=== PATIENT | male | born 1970 | race Caucasian/White ===

== ENCOUNTER → 2020-08-31 09:04 | Outpatient (BNVA) | payer SELFPAY | PROVIDERS: Visit Provider Nurse Practitioner | DX: M10.9 Gout, unspecified (principal) | CPT/HCPCS: 84550 ==

== ENCOUNTER → 2020-10-08 13:51 | Outpatient (BNVA) | payer SELFPAY | PROVIDERS: Visit Provider Nurse Practitioner Family | DX: M25.561 Pain in right knee (principal); M25.461 Effusion, right knee; M10.9 Gout, unspecified | CPT/HCPCS: 73562 ==

== ENCOUNTER → 2020-10-22 16:08 | Outpatient (BNVA) | payer SELFPAY | PROVIDERS: PCP Nurse Practitioner Family; Visit Provider Nurse Practitioner Family | DX: M25.461 Effusion, right knee (principal); M25.561 Pain in right knee; M10.9 Gout, unspecified | CPT/HCPCS: 80053; 84550; 85025; 85651; 86140; 86431 ==

== ENCOUNTER 2020-10-23 13:02 | Outpatient (CLI) | payer SELFPAY ==
--- NOTE | 2020-10-23 13:08 | MR_ITS ---
WS: [id number] MRI RIGHT KNEE NONCONTRAST TECHNIQUE: Axial PD, coronal PD fat sat, coronal PD, sagittal PD, and sagittal PD fat-sat images obta ined. CLINICAL INFORMATION: M25.561 - Pain in right knee COMPARISON: None. FINDINGS: Distal quadriceps and patella tendons are intact. Small suprapatellar effusion with small amount of p roteinaceous debris. Anterior and posterior cruciate ligaments are intact. Hypertrophic patella. Soft tissue edema and synovial thickening about the knee. Edema in the popliteal fossa. T2 hyperintense well-circumscribed ovoid heterogeneous lesion below the joint line posterior to the p roximal tibia in the proximal muscle belly of the popliteus. This measures approximately 3.1 x 1.6 x 4.1 CM. This is incompletely included on the axial imaging. Chronic thinning of the medial and lateral meniscus. No acute appearing meniscal tears. Moderate chana dromalacia involving the medial and lateral joint compartments. Mild chondromalacia patella. Medial a nd lateral collateral ligaments appear intact. Small lobulated T2 hyperintense lesions in the dorsal soft tissues along the posterior femur measurin g up to 12 mm. Prepatellar and infrapatellar soft tissue edema. No significant erosive changes or bon e marrow edema. MR/MR knee RT wo con* [id number] IMPRESSION: 1. Anterior and posterior cruciate ligaments are intact. 2. Small joint effusion with heterogeneity likely due to proteinaceous debris. 3. Diffuse soft tissue edema with synovial thickening about the knee extending into the popliteal fossa. This is nonspecific but can be seen with infectious or inflammatory arthropathy including gout. 4. Ovoid heterogeneous lesion within the popliteus along the posterior tibia m easuring up to 4.1 cm described above. This may represent gouty tophi with hist ory or possibly hematoma. Infection with abscess should be excluded. 5. Additional small T2 hyperintense lobulated lesions in the dorsal knee soft tissues above the joint line are nonspecific and may represent small ganglion c ysts or gouty tophi. Infection with small abscesses should be excluded 6. No significant erosive changes bone marrow edema.
== END 2020-10-23 13:03 | disposition home or self-care (01) ==
LOC: RADWPI 13:05
PROVIDERS: PCP Nurse Practitioner Family; Visit Provider Nurse Practitioner Family
DX: M25.561 Pain in right knee (principal); R60.0 Localized edema; M25.461 Effusion, right knee
CPT/HCPCS: 73721

== ENCOUNTER → 2020-10-25 16:26 | Outpatient (BNVA) | payer SELFPAY | PROVIDERS: PCP Nurse Practitioner Family; Visit Provider Nurse Practitioner Family | DX: R76.8 Other specified abnormal immunological findings in serum (principal); M25.561 Pain in right knee; M25.461 Effusion, right knee | CPT/HCPCS: 85025 ==

== ENCOUNTER → 2020-12-17 08:50 | Outpatient (BNVA) | payer SELFPAY | PROVIDERS: PCP Nurse Practitioner Family; Visit Provider Internal Medicine Rheumatology | DX: M05.79 Rheumatoid arthritis with rheumatoid factor of multiple sites without organ or systems involvement (principal); Z79.899 Other long term (current) drug therapy; Z79.52 Long term (current) use of systemic steroids; Z11.59 Encounter for screening for other viral diseases; Z11.1 Encounter for screening for respiratory tuberculosis; M10.9 Gout, unspecified; M24.521 Contracture, right elbow; M24.522 Contracture, left elbow; M24.561 Contracture, right knee; F17.290 Nicotine dependence, other tobacco product, uncomplicated | CPT/HCPCS: 99204 ==

== ENCOUNTER 2020-12-17 10:11 | Outpatient (CLI) | payer SELFPAY ==
--- NOTE | 2020-12-17 10:26 | XRR_ITS ---
PROCEDURE INFORMATION: Exam: XR Left Hand Exam date and time: 12/17/2020 11:04 AM Age: 50 years old Clinical indication: Screening exam; Z79.899 - other residential (current) drug therapy TECHNIQUE: Imaging protocol: XR Left hand. Views: 3 or more views. COMPARISON: No relevant prior studies available. FINDINGS: Bones/joints: No fracture, dislocation or other acute bone or joint abnormalities are seen. There is mild diffuse narrowing of the interphalangeal joints. No destructive or erosive bony changes are present. Soft tissues: Normal. XR/XR hand LT min 3V* [id number] IMPRESSION: Mild narrowing of the interphalangeal joints. No other significant abnormalities are seen.
--- NOTE | 2020-12-17 10:26 | XRR_ITS ---
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 Views: 3 or more views. COMPARISON: No relevant prior studies available. FINDINGS: Bones/joints: No fracture, dislocation or other acute bone or joint abnormalities are seen. Moderate chronic degenerative disease is present in the 1st metatarsophalangeal joint with narrowing sclerosis and small osteophytes. There is chronic spurring on the calcaneus at the insertions of the Achilles tendon and plantar aponeurosis. No destructive or erosive changes are seen. Soft tissues: See Bones/joints finding. XR/XR foot RT min 3V* [id number] IMPRESSION: 1. Moderate degenerative disease in the 1st metatarsophalangeal joint. 2. No acute bony abnormality.
--- NOTE | 2020-12-17 10:26 | XRR_ITS ---
PROCEDURE INFORMATION: Exam: XR Left Foot Exam date and time: 12/17/2020 10:27 AM Age: 50 years old Clinical indication: Screening exam; Z79.899 - other penitentiary (current) drug therapy TECHNIQUE: Imaging protocol: XR Left foot. Views: 3 or more views. COMPARISON: No relevant prior studies available. FINDINGS: Bones/joints: No fracture, dislocation or other acute abnormalities are seen. Moderate chronic degenerative osteoarthritis is present in the 1st metatarsophalangeal joint with narrowing sclerosis and small osteophytes. There is chronic spurring on the calcaneus at the insertions of the Achilles tendon and plantar aponeurosis. There is deformity of the head of the proximal phalanx of the 4th toe which is probably from old injury. Soft tissues: See Bones/joints finding. XR/XR foot LT min 3V* [id number] IMPRESSION: 1. Moderate degenerative disease in the 1st metatarsophalangeal joint. 2. No acute abnormality.
--- NOTE | 2020-12-17 10:26 | XRR_ITS ---
PROCEDURE INFORMATION: Exam: XR Right Elbow Exam date and time: 12/17/2020 11:06 AM Age: 50 years old Clinical indication: Screening exam; Z79.899 - other intermediate (current) drug therapy TECHNIQUE: Imaging protocol: XR Right elbow. Views: 1 or 2 views. COMPARISON: No relevant prior studies available. FINDINGS: Bones/joints: No fracture or other acute abnormalities are seen. There is a small olecranon spur. There is tiny osteophyte formation on the proximal radius and ulna. No destructive or erosive changes are present. Soft tissues: Normal. XR/XR elbow RT 2V [id number] IMPRESSION: Minimal chronic degenerative osteoarthritis. No acute abnormality.
--- NOTE | 2020-12-17 10:26 | XRR_ITS ---
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 Views: 3 or more views. COMPARISON: No relevant prior studies available. FINDINGS: Bones/joints: No fracture, dislocation or other acute bone or joint abnormalities are seen. There is mild diffuse narrowing of the interphalangeal joints. No destructive or erosive changes are present. Soft tissues: Normal. XR/XR hand RT min 3V* [id number] IMPRESSION: Mild narrowing of the interphalangeal joints. No other significant abnormalities.
--- NOTE | 2020-12-17 10:26 | XRR_ITS ---
PROCEDURE INFORMATION: Exam: XR Left Elbow Exam date and time: 12/17/2020 11:06 AM Age: 50 years old Clinical indication: Screening exam; Z79.899 - other intermediate designer (current) drug therapy TECHNIQUE: Imaging protocol: XR Left elbow. Views: 1 or 2 views. COMPARISON: No relevant prior studies available. FINDINGS: Bones/joints: No fracture, dislocation or other acute bone or joint abnormalities are seen. Minimal degenerative changes are present with sclerosis and tiny osteophytes. No destructive or erosive changes are seen. Soft tissues: Normal. XR/XR elbow LT 2V [id number] IMPRESSION: Minimal degenerative disease. No acute abnormality.
[2020-12-17 12:25] LABS: 25 Hydroxy Vitamin D 33 ng/mL (30-100)
[2020-12-17 12:56] LABS: Hepatitis B Core AB, Total Non-Reactive (Nonreactive); Hepatitis B Surface Antigen Non-Reactive (Nonreactive); Hepatitis C Virus Antibody Non-Reactive (Nonreactive)
[2020-12-18 15:33] LABS: Cyclic Citrullinated Peptide >250 UNITS
[2020-12-19 15:12] LABS: Quantiferon Mitogen 7.61 IU/mL; Quantiferon Nil 0.01 IU/mL; Quantiferon TB Gold NEGATIVE (NEGATIVE)
== END 2020-12-17 10:12 | disposition home or self-care (01) ==
PROVIDERS: PCP Nurse Practitioner Family; Visit Provider Internal Medicine Rheumatology
DX: M06.9 Rheumatoid arthritis, unspecified (principal); Z79.899 Other long term (current) drug therapy; Z11.59 Encounter for screening for other viral diseases; Z11.1 Encounter for screening for respiratory tuberculosis
CPT/HCPCS: 36415; 73070; 73130; 73630; 82306; 84550; 86480; 86704; 86803; 87340

== ENCOUNTER 2022-11-01 02:14 | Emergency (ER) | payer SELFPAY ==
[2022-11-01 02:15] VITALS: BP 148/89; PULSE 87; RESP 18; TEMP 36.9; O2SAT 94; BMI 31.4
--- NOTE | 2022-11-01 02:51 | XRR_ITS ---
PROCEDURE INFORMATION: Exam: XR Chest Exam date and time: 11/01/2022 3:03 AM Age: 52 years old Clinical indication: Pain; Chest pressure; Additional info: Cp TECHNIQUE: Imaging protocol: Radiologic exam of the chest. Views: 1 view. COMPARISON: No relevant prior studies available. FINDINGS: Lungs: Unremarkable. No consolidation. Pleural spaces: Unremarkable. No pleural effusion. No pneumothorax. Heart/Mediastinum: Unremarkable. No cardiomegaly. Bones/joints: Unremarkable. XR/XR chest 1V portable [id number] IMPRESSION: No acute findings.
--- NOTE | 2022-11-01 03:37 | W.ED.BACK ---
HPI - Back Pain/Injury General: Chief Complaint: Back Pain/Injury Stated Complaint: INSECT BITE Time Seen by Provider: 11/01/22 02:17 Source: patient History of Present Illness: 52-year-old male with chest pain. Chest pain is left-sided. He noticed a bug bite in the area of origin on his left upper back. The pains seemed to radiate around his chest wall yesterday. This morning, the pain was more through his chest. He became diaphoretic. He got short of breath. He thought he was having a heart attack so he called an ambulance. Pain is not reproducible. He has been coughing some. No fever. MD elicited complaint: back pain and other Pertinent past history: other Onset (ago): hour(s) Timing: intermittent Severity: moderate Similar Symptoms Previously: No Quality: sharp Location: left upper back Radiation: chest Exacerbating factors: none Relieving factors: none Associated symptoms: Reports nausea and other; Deny abdominal pain, chills, dysuria, fatigue, fever(s), tingling/numbness/burning, vomiting or weakness Review of Systems Const: Denies: fever(s), chills or fatigue Eyes: Denies: change in vision ENMT: Denies: throat pain Card: Reports: chest pain Resp: Reports: dyspnea and non-productive cough; Denies: productive cough GI: Reports: nausea; Denies: abdominal pain or vomiting : Denies: dysuria Skin/Breast: Reports: rash [facility] PFSH: Medical History Anxiety Chronic steroid use Gout attack Gout, arthritis High risk medication use Immunization counseling Seropositive rheumatoid arthritis of multiple sites Surgical History History of appendectomy Family History Father Cancer Prostate Diabetes Other Dementia Stroke Denies family history of Hypertension Social History Smoking and tobacco status: current every day smoker e-cigarettes E-Cigarette Details: vaporizer device Second hand smoke exposure: No Smoking risk assessment/counseling performed?: No Alcohol intake: former Desire information about alcohol rehabilitation?: No Counseling given: No Desire information about substance/drug rehabilitation?: No Counseling given: No Adopted: No Caregiver/support person: No Lives independently: Yes Household members: none Housing: House Marital status: Single Number of children: 1 service: No Current occupational status: employed Current occupation: Self Employed Pets and animals: No Current gender identity: Male Physical Exam Const: COMMON NORMALS: no acute distress GENERAL APPEARANCE: cooperative; not ill appearing and not frail appearing HENMT: COMMON NORMALS: normocephalic, atraumatic and Normal external nose present HEAD & SCALP: normocephalic and atraumatic FACE & SINUS: normal facial exam and face symmetric NOSE: Normal external nose present Eye: COMMON NORMALS: Equal, round and reactive pupils present and EOMs intact bilaterally PUPIL: Yes Equal, round and reactive pupils present Neck/C-Spine: GENERAL: Yes trachea midline Chest: CHEST: Yes Symmetrical chest wall rise and No tenderness Resp: COMMON NORMALS: normal respiratory effort, No retractions, No use of accessory muscles and clear to auscultation bilaterally AUSCULTATION: clear to auscultation bilaterally Cardio: COMMON NORMALS: regular rate and regular rhythm RATE: regular rate RHYTHM: regular rhythm GI: COMMON NORMALS: Normal to inspection, nondistended, normoactive bowel sounds present Extremity: COMMON NORMALS: no pedal edema Neuro: GEOVANI COMA SCALE: document GCS findings [place] coma scale eye opening: Spontaneous Geovani coma scale verbal response: Orientated [place] coma scale motor response: Obey commands Geovani coma scale total score: 15 SENSORY EXAM: Yes extremities (intact) Psych: COMMON NORMALS: speech normal SPEECH: Yes normal speech Skin: NARRATIVE SKIN EXAM: Multiple bites to the back. 1 over the area of pain origin. It is nontender. No erythema migrans rash. Course Vital Signs: Vital signs: Vital Signs Temperature 98.4 F 11/01/22 05:48 Pulse Rate 88 11/01/22 05:48 Respiratory Rate 18 11/01/22 05:48 Blood Pressure 140/76 11/01/22 05:48 Pulse Oximetry 93 11/01/22 05:48 MDM - Back Pain/Injury Medical Decision Making It isEKG shows a sinus rhythm with normal axis and intervals. 88. No acute ST changes. Troponin is 6. CBC is normal. D-dimer is nondetectable. Chest x-ray is negative. He will be allowed home. We will treat for costochondritis, chest wall inflammation. Labs 11/01/22 04:20 11/01/22 04:20 Radiology Impressions Chest X-Ray 11/01/22 02:51 IMPRESSION: No acute findings. Laboratory Results WBC 9.9 10^3/uL (4.0-10.0) 11/01/22 04:20 RBC 4.89 10^6/uL (4.1-5.3) 11/01/22 04:20 Hgb 15.2 g/dL (11.7-16.6) 11/01/22 04:20 Hct 45.3 % (42.0-52.0) 11/01/22 04:20 MCV 92.6 fl (80-94) 11/01/22 04:20 MCH 31.1 pg (28.0-34.0) 11/01/22 04:20 MCHC 33.6 g/dL (30.0-36.0) 11/01/22 04:20 RDW 13.2 % (12.1-15.1) 11/01/22 04:20 Plt Count 311 10^3/cmm (130-400) 11/01/22 04:20 MPV 9.0 fL (7.4-10.4) 11/01/22 04:20 Neut % (Auto) 65.8 % 11/01/22 04:20 Lymph % (Auto) 25.2 % 11/01/22 04:20 [place] % (Auto) 5.6 % 11/01/22 04:20 Eos % (Auto) 2.2 % 11/01/22 04:20 Baso % (Auto) 0.4 % 11/01/22 04:20 Neut # (Auto) 6.50 10^3/uL (1.8-7.7) 11/01/22 04:20 Lymph # (Auto) 2.5 10^3/uL (0.8-4.8) 11/01/22 04:20 [place] # (Auto) 0.6 10^3/uL (0.2-0.9) 11/01/22 04:20 Eos # (Auto) 0.2 10^3/uL (0.0-0.8) 11/01/22 04:20 Baso # (Auto) 0.0 10^3/uL (0.0-0.1) 11/01/22 04:20 Nucleated RBC % (auto) 0 % 11/01/22 04:20 Nucleated RBCs # 0.0 /100WBC 11/01/22 04:20 D-Dimer <= 0.27 ug/mIFEU (0-0.59) 11/01/22 04:20 Sodium 128 mmol/L (136-145) L 11/01/22 04:20 Potassium 3.9 mmol/L (3.5-5.1) 11/01/22 04:20 Chloride 97 mmol/L (98-107) L 11/01/22 04:20 Carbon Dioxide 23 mmol/L (22-29) 11/01/22 04:20 Anion Gap 11.9 (5-19) 11/01/22 04:20 BUN 15 mg/dL (6-20) 11/01/22 04:20 Creatinine 0.7 mg/dL (0.7-1.2) 11/01/22 04:20 GFR Calculation 118.9 mL/min (90-130) 11/01/22 04:20 Glucose 112 mg/dL (65-115) 11/01/22 04:20 Calculated Osmolality 268 mOsm/kg (285-295) L 11/01/22 04:20 Calcium 8.9 mg/dL (8.5-10.5) 11/01/22 04:20 Total Bilirubin 0.3 mg/dL (0.15-1.2) 11/01/22 04:20 AST 12 U/L (0-40) 11/01/22 04:20 ALT 23 U/L (0-41) 11/01/22 04:20 Alkaline Phosphatase 88 U/L (40-130) 11/01/22 04:20 Creatine Kinase 102 U/L (39-308) 11/01/22 04:20 Troponin T Baseline 6 ng/L (0-15) 11/01/22 04:20 NT-Pro-B Natriuret Pep 36 pg/mL (0-125) 11/01/22 04:20 Total Protein 6.6 g/dL (6.6-8.7) 11/01/22 04:20 Albumin 4.4 g/dL (3.5-5.2) 11/01/22 04:20 Globulin 2.2 g/dL (1.3-4.6) 11/01/22 04:20 Discharge Plan Discharge Patient Disposition: Home Clinical Impression: Acute costochondritis, Tick bite Condition: Stable Prescriptions: New ondansetron 4 mg film 4 mg PO DAILY PRN (Reason: nausea and vomiting) Qty: 10 0RF No Action naproxen sodium [Aleve] 220 mg tablet 440 mg PO BID PRN CBD tincture buccal allopurinol 300 mg tablet 300 mg PO DAILY Qty: 30 3RF colchicine 0.6 mg tablet 0.6 mg PO BID PRN (Reason: gout pain) Qty: 60 3RF prednisone 10 mg tablet See Rx Instructions PO DAILY Qty: 120 1RF Rx Instructions: take 3 tabs daily x 10 days, then 2 tabs QD x10 days then 1.5 QD x 10 days. then stay on 1 daily PO daily; pantoprazole 40 mg tablet,delayed release (DR/EC) 40 mg PO DAILY Qty: 30 3RF methotrexate sodium 2.5 mg tablet 15 mg PO .Q7days Qty: 30 3RF Rx Instructions: 6 tabs every thursday folic acid 1 mg tablet 1 mg PO DAILY Qty: 90 3RF prednisone 10 mg tablets,dose pack See Rx Instructions PO PER PKG DIR Qty: 21 0RF Rx Instructions: PO PER PKG DIR May use loose pills if needed. Discharge Orders: Discharge ED (Routine); Ordered 11/01/22 Ordered By: Emeka Mari Referrals: Estelle Mitchell FNP-C [Primary Care Provider] - 1-3 days Patient Instructions: Costochondritis (ED) Activity Restrictions/Additional Instructions: Return for fever greater than 100, return for worsening pain despite treatment, worsening shortness of breath, any other concerning symptoms for Coding Level of Care Code ED Freelance Photographer for [employer]
--- NOTE | 2022-11-01 03:41 | ECG_ITS ---
[facility] Test Date: 2022-11-01 Pat Name: Tito Ferguson Department: Room: Gender: Male Superintendent Pier: : 1970 Requested By: Emeka Storey Order Number: [id number] Mikaela MD: Grady Dickey M.D. Measurements Intervals [place] Rate: 88 P: 14 MO: 148 QRS: 12 QRSD: 95 T: 18 QT: 345 QTc: 419 Interpretive Statements SINUS RHYTHM No previous ECG available for comparison Electronically Signed On 11-01-2022 7:12:16 CDT by Grady Dickey M.D. [email or web address]
--- NOTE | 2022-11-01 04:20 | PC.NURSE ---
pt up to restroom
[2022-11-01 04:36] LABS: Basophils % 0.4 %; Eosinophils # 0.2 10^3/uL (0.0-0.8); Eosinophils % 2.2 %; Hematocrit 45.3 % (42.0-52.0); Hemoglobin 15.2 g/dL (11.7-16.6); Lymphocytes # 2.5 10^3/uL (0.8-4.8); Lymphocytes % 25.2 %; Mean Corpuscular HGB Conc 33.6 g/dL (30.0-36.0); Mean Corpuscular Hemoglobin 31.1 pg (28.0-34.0); Mean Corpuscular Volume 92.6 fl (80-94); Monocytes # 0.6 10^3/uL (0.2-0.9); Monocytes % 5.6 %; Neutrophils % 65.8 %; Nucleated Red Blood Cells % 0 %; Platelet Count 311 10^3/cmm (130-400); Red Blood Count 4.89 10^6/uL (4.1-5.3); Red Cell Distribution Width 13.2 % (12.1-15.1); White Blood Count 9.9 10^3/uL (4.0-10.0)
[2022-11-01 04:48] LABS: D Dimer <= 0.27 ug/mIFEU (0-0.59)
--- NOTE | 2022-11-01 04:51 | ECG_ITS ---
[facility] Test Date: 2022-11-01 Pat Name: Tito Ferguson Department: Room: Gender: Male Dj Instructor: : 1970 Requested By: Emeka Storey Order Number: [id number] Mikaela MD: Grady Dickey M.D. Measurements Intervals [place] Rate: 86 P: 35 [place]: 149 QRS: 24 QRSD: 100 T: 32 QT: 347 QTc: 415 Interpretive Statements SINUS RHYTHM No previous ECG available for comparison Electronically Signed On 11-01-2022 7:13:18 CDT by Grady Dickey M.D. [id number]
[2022-11-01 04:53] LABS: Troponin(5th) Baseline 6 ng/L (0-15)
[2022-11-01 05:02] LABS: Alanine Aminotransferase 23 U/L (0-41); Albumin Level 4.4 g/dL (3.5-5.2); Alkaline Phosphatase 88 U/L (40-130); Anion Gap 11.9 (5-19); Aspartate Amino Transferase 12 U/L (0-40); Blood Urea Nitrogen 15 mg/dL (6-20); Calcium 8.9 mg/dL (8.5-10.5); Carbon Dioxide 23 mmol/L (22-29); Chloride 97 mmol/L (98-107); Creatine Phosphokinase 102 U/L (39-308); Creatinine Clr Calc Pharmacy 151.8707; Globulin 2.2 g/dL (1.3-4.6); Glomerular Filtration Rate 118.9 mL/min (90-130); Glucose 112 mg/dL (65-115); NT Pro B Type Natriuretic Pept 36 pg/mL (0-125); Osmolality Calculated 268 mOsm/kg (285-295); Potassium 3.9 mmol/L (3.5-5.1); Sodium 128 mmol/L (136-145); Total Bilirubin 0.3 mg/dL (0.15-1.2); Total Protein 6.6 g/dL (6.6-8.7)
[2022-11-01 05:48] VITALS: BP 140/76; PULSE 88; RESP 18; TEMP 36.9; O2SAT 93
== END 2022-11-01 05:49 | disposition home or self-care (01) ==
PROVIDERS: Emergency Provider Emergency Medicine; PCP Nurse Practitioner Family
DX: M94.0 Chondrocostal junction syndrome [Tietze] (principal); S20.462A Insect bite (nonvenomous) of left back wall of thorax, initial encounter; W57.XXXA Bitten or stung by nonvenomous insect and other nonvenomous arthropods, initial encounter; F17.290 Nicotine dependence, other tobacco product, uncomplicated
CPT/HCPCS: 71045; 80053; 82550; 83880; 84484; 85025; 85378; 93005; 99285